=== PATIENT | male | born 1985 | race Caucasian/White ===

== ENCOUNTER 2018-02-10 13:39 | Emergency (ER) | payer OTHER, MEDICAID, SELFPAY ==
[2018-02-10 13:42] VITALS: BP 133/79; PULSE 73; RESP 14; TEMP 36.3; O2SAT 100; BMI 29.6
--- NOTE | 2018-02-10 14:31 | ED.FEVER ---
HPI - Fever <CAIT Shankar - Last Filed: 02/10/18 23:08> General Chief Complaint: Fever Stated Complaint: SPIDER BITE, FEELS SICK Time Seen by Provider: 02/10/18 14:31 Source: patient Mode of arrival: ambulatory Limitations: no limitations History of Present Illness HPI Narrative: 32-year-old male here for complaint of redness to his left knee. He states he noticed the symptoms yesterday. He also reports that he had some feelings of chills earlier today. He states he thought he might had a fever although he did not check his temperature. He reports that he has some discomfort to the anterior portion of his knee. 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 He thought maybe he was got bit by a spider although he denies any specific lesions. No trauma to the knee that he knows of. He denies any other concerns or complaints. He states he is able to bend the knee without any discomfort. He is able to ambulate in the emergency room without any discomfort. Related Data Home Medications Medication Instructions Recorded Confirmed gabapentin 300 mg PO TID 02/10/18 02/10/18 ketoconazole 1 applic/day TOPICAL DAILY 02/10/18 02/10/18 Previous Rx's Medication Instructions Recorded duloxetine 30 mg capsule,delayed 30 mg PO DAILY #30 cap 01/15/18 release clindamycin HCl 300 mg PO QID #28 cap 02/10/18 Allergies Allergy/AdvReac Type Severity Reaction Status Date / Time No Known Drug Allergies Allergy Verified 02/10/18 13:45 Review of Systems <CAIT Shankar - Last Filed: 02/10/18 23:08> Constitutional Denies chills, Denies fever(s), Denies lethargy and Denies weakness Eyes Denies change in vision, Denies eye discharge, Denies irritation and Denies loss of vision ENT Ears, Nose, Mouth, and Throat: Denies change in voice, Denies neck pain and Denies sore throat Cardiovascular Denies chest pain, Denies irregular heart rhythm, Denies lightheadedness, Denies palpitations, Denies dyspnea, Denies dyspnea on exertion and Denies orthopnea Respiratory Denies cough, Denies dyspnea, Denies dyspnea on exertion and Denies wheezing Gastrointestinal Gastrointestinal: Denies abdominal pain, Denies change in bowel habits, Denies diarrhea, Denies nausea and Denies vomiting Genitourinary Denies hematuria, Denies flank pain, Denies urinary incontinence and Denies urinary urgency Musculoskeletal Denies neck pain Comments: Left knee pain and erythema Integumentary/Breasts Denies pruritus, Denies erythema, Denies rash and Denies wounds Neurologic Denies confusion, Denies loss of vision and Denies weakness Psychiatric Denies anxiety, Denies confusion, Denies depression, Denies homicidal ideation and Denies suicidal ideation Endocrine Denies palpitations Hematologic/Lymphatic Denies easy bruising Allergic/Immunologic Denies wheezing Exam <CAIT Shankar - Last Filed: 02/10/18 23:08> Initial Vital Signs Initial Vital Signs: Vital Signs Temperature 97.4 F L 02/10/18 13:42 Pulse Rate 73 02/10/18 13:42 Respiratory Rate 14 02/10/18 13:42 Blood Pressure 133/79 H 02/10/18 13:42 Pulse Oximetry 100 02/10/18 13:42 Const General: cooperative and well developed Nutritional Appearance: well nourished Orientation: alert, awake, oriented x3 and not confused HENW[place] Mouth: oral mucosae normal and moist mucous membranes Eyes Conjunctivae: conjunctivae normal Sclera: sclerae normal Pupils: PERRL EOM: EOM intact bilaterally Resp Effort & Inspection: normal respiratory effort, able to speak in complete sentences, no respiratory distress and no use of accessory muscles Auscultation: clear to auscultation bilaterally, no rales, no rhonchi and no wheezes Cardio Rate: regular rate Rhythm: regular rhythm Heart Sounds: no click, no gallops, no murmurs and no rubs Pulses: normal peripheral pulses GI Inspection: non-distended Palpation: soft, no hepatosplenomegaly, No guarding, No pulsatile mass and No tender Auscultation: normal bowel sounds Skin General: no rashes or lesions noted, No jaundice and No petechiae Neuro General: alert, oriented x3, gait normal and no focal motor deficits Speech: speech normal Extrem Other: Slight erythema to anterior portion of the left knee. Slight swelling. Superficial abrasion to the anterior portion of the left knee. Full range of motion of left knee. Negative anterior posterior drawer sign. <Helder Javed MD - Last Filed: 02/12/18 08:52> Initial Vital Signs Initial Vital Signs: Vital Signs Temperature 97.4 F L 02/10/18 13:42 Pulse Rate 73 02/10/18 13:42 Respiratory Rate 14 02/10/18 13:42 Blood Pressure 133/79 H 02/10/18 13:42 Pulse Oximetry 100 02/10/18 13:42 Course <CAIT Shankar - Last Filed: 02/10/18 23:08> Orders Ordered: ED Orders 02/10/18 15:19 XR knee LT 3V Stat Vital Signs - 8 hr 02/10/18 16:30 Pulse Rate 68 Respiratory Rate 15 Blood Pressure [Right Arm] 132/80 H Pulse Oximetry 100 <Helder Javed MD - Last Filed: 02/12/18 08:52> Orders Ordered: ED Orders 02/10/18 15:19 XR knee LT 3V Stat Vital Signs - 8 hr 02/10/18 16:30 Pulse Rate 68 Respiratory Rate 15 Blood Pressure [Right Arm] 132/80 H Pulse Oximetry 100 MDM - Fever <CAIT Shankar - Last Filed: 02/10/18 23:08> Imaging Data knee: Radiologist's impression: Patient: Joe Wu MR#: [id number] : 1985 Acct:[id number] Age/Sex: 32 / M Date of Service: 02/10/18 Loc: Accession Number: [id number] Procedure: XR knee LT 3V Ordering Provider: Jacinto García PROCEDURE: XR KNEE LT 3V INDICATIONS: Pain to anterior left knee TECHNIQUE: 3 views of the knee were acquired. COMPARISON: None. FINDINGS: Bones: No fractures or dislocations. No suspicious bony lesions. Soft tissues: No joint effusion. No suspicious soft tissue calcifications. IMPRESSION: No fracture or dislocation. Dictated by: Cornelia Diaz M.D. on 02/10/2018 at 15:40 Approved by: Cornelia Diaz M.D. on 02/10/2018 at 15:41 MDM Narrative Medical decision making narrative: X-ray the left knee was obtained was negative for any acute findings. Due to a mild abrasion seen into anterior portion of the left knee and increased temperature to the area will treat for cellulitis. Differential of prepatellar bursitis. [id number] ibuprofen as needed for any discomfort. Follow up with primary care provider in the next few days. Clindamycin as prescribed. Patient states that he gets frequent urinary tract infections so Urinalysis was obtained and was negative for urinary tract infection. For any worsening symptoms return to the emergency room. Discharge Plan Departure Patient Disposition: Home, Self-Care Clinical Impression: Cellulitis Discharge Date/Time: 02/10/18 16:36 Interventions: ED Discharge Assessment Last Done: 02/10/18 16:35 Instructions: DI for Cellulitis -- Adult Activity Restrictions/Additional Instructions: Sinus symptoms presents as cellulitis to the anterior left knee. You are placed on antibiotic use as directed. Differential diagnosis of prepatellar bursitis due to being on knees yesterday use [id number] ibuprofen for anti-inflammatory effects and discomfort. Follow up with primary care provider in the next few days for re-evaluation. X-ray of the left knee was negative for any acute findings. For any worsening symptoms return to the emergency room. Urinalysis was negative for urinary tract infection. Prescriptions: New clindamycin HCl 300 mg capsule 300 mg PO QID Qty: 28 RF: 0 No Action duloxetine [Cymbalta] 30 mg capsule,delayed release(DR/EC) 30 mg PO DAILY Qty: 30 RF: 3 gabapentin 300 mg capsule 300 mg PO TID RF: 0 ketoconazole 2 % cream 1 applic/day Topical DAILY RF: 0 Referrals: Apolinar Medina MD [Primary Care Provider] - <Helder Javed MD - Last Filed: 02/12/18 08:52> Sign Out Provider Sign Out Attestation: The PA/CORRESPONDENCE RENEW CLERK functioned independently for the care of this pt, I was available, but not asked to participate in care. I am unable to determine appropriateness of management without personally examining the pt.
--- NOTE | 2018-02-10 14:35 | ED_ITS ---
HPI - Fever <CAIT Shankar - Last Filed: 02/10/18 23:08> General Chief Complaint: Fever Stated Complaint: SPIDER BITE, FEELS SICK Time Seen by Provider: 02/10/18 14:31 Source: patient Mode of arrival: ambulatory Limitations: no limitations History of Present Illness HPI Narrative: 32-year-old male here for complaint of redness to his left knee. He states he noticed the symptoms yesterday. He also reports that he had some feelings of chills earlier today. He states he thought he might had a fever although he did not check his temperature. He reports that he has some discomfort to the anterior portion of his knee. 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 He thought maybe he was got bit by a spider although he denies any specific lesions. No trauma to the knee that he knows of. He denies any other concerns or complaints. He states he is able to bend the knee without any discomfort. He is able to ambulate in the emergency room without any discomfort. Related Data Home Medications Medication Instructions Recorded Confirmed gabapentin 300 mg PO TID 02/10/18 02/10/18 ketoconazole 1 applic/day TOPICAL DAILY 02/10/18 02/10/18 Previous Rx's Medication Instructions Recorded duloxetine 30 mg capsule,delayed 30 mg PO DAILY #30 cap 01/15/18 release clindamycin HCl 300 mg PO QID #28 cap 02/10/18 Allergies Allergy/AdvReac Type Severity Reaction Status Date / Time No Known Drug Allergies Allergy Verified 02/10/18 13:45 Review of Systems <CAIT Shankar - Last Filed: 02/10/18 23:08> Constitutional Denies chills, Denies fever(s), Denies lethargy and Denies weakness Eyes Denies change in vision, Denies eye discharge, Denies irritation and Denies loss of vision ENT Ears, Nose, Mouth, and Throat: Denies change in voice, Denies neck pain and Denies sore throat Cardiovascular Denies chest pain, Denies irregular heart rhythm, Denies lightheadedness, Denies palpitations, Denies dyspnea, Denies dyspnea on exertion and Denies orthopnea Respiratory Denies cough, Denies dyspnea, Denies dyspnea on exertion and Denies wheezing Gastrointestinal Gastrointestinal: Denies abdominal pain, Denies change in bowel habits, Denies diarrhea, Denies nausea and Denies vomiting Genitourinary Denies hematuria, Denies flank pain, Denies urinary incontinence and Denies urinary urgency Musculoskeletal Denies neck pain Comments: Left knee pain and erythema Integumentary/Breasts Denies pruritus, Denies erythema, Denies rash and Denies wounds Neurologic Denies confusion, Denies loss of vision and Denies weakness Psychiatric Denies anxiety, Denies confusion, Denies depression, Denies homicidal ideation and Denies suicidal ideation Endocrine Denies palpitations Hematologic/Lymphatic Denies easy bruising Allergic/Immunologic Denies wheezing Exam <CAIT Shankar - Last Filed: 02/10/18 23:08> Initial Vital Signs Initial Vital Signs: Vital Signs Temperature 97.4 F L 02/10/18 13:42 Pulse Rate 73 02/10/18 13:42 Respiratory Rate 14 02/10/18 13:42 Blood Pressure 133/79 H 02/10/18 13:42 Pulse Oximetry 100 02/10/18 13:42 Const General: cooperative and well developed Nutritional Appearance: well nourished Orientation: alert, awake, oriented x3 and not confused HENOR Mouth: oral mucosae normal and moist mucous membranes Eyes Conjunctivae: conjunctivae normal Sclera: sclerae normal Pupils: PERRL EOM: EOM intact bilaterally Resp Effort & Inspection: normal respiratory effort, able to speak in complete sentences, no respiratory distress and no use of accessory muscles Auscultation: clear to auscultation bilaterally, no rales, no rhonchi and no wheezes Cardio Rate: regular rate Rhythm: regular rhythm Heart Sounds: no click, no gallops, no murmurs and no rubs Pulses: normal peripheral pulses GI Inspection: non-distended Palpation: soft, no hepatosplenomegaly, No guarding, No pulsatile mass and No tender Auscultation: normal bowel sounds Skin General: no rashes or lesions noted, No jaundice and No petechiae Neuro General: alert, oriented x3, gait normal and no focal motor deficits Speech: speech normal Extrem Other: Slight erythema to anterior portion of the left knee. Slight swelling. Superficial abrasion to the anterior portion of the left knee. Full range of motion of left knee. Negative anterior posterior drawer sign. <Helder Javed MD - Last Filed: 02/12/18 08:52> Initial Vital Signs Initial Vital Signs: Vital Signs Temperature 97.4 F L 02/10/18 13:42 Pulse Rate 73 02/10/18 13:42 Respiratory Rate 14 02/10/18 13:42 Blood Pressure 133/79 H 02/10/18 13:42 Pulse Oximetry 100 02/10/18 13:42 Course <CAIT Shankar - Last Filed: 02/10/18 23:08> Orders Ordered: ED Orders 02/10/18 15:19 XR knee LT 3V Stat Vital Signs - 8 hr 02/10/18 16:30 Pulse Rate 68 Respiratory Rate 15 Blood Pressure [Right Arm] 132/80 H Pulse Oximetry 100 <Helder Javed MD - Last Filed: 02/12/18 08:52> Orders Ordered: ED Orders 02/10/18 15:19 XR knee LT 3V Stat Vital Signs - 8 hr 02/10/18 16:30 Pulse Rate 68 Respiratory Rate 15 Blood Pressure [Right Arm] 132/80 H Pulse Oximetry 100 MDM - Fever <CAIT Shankar - Last Filed: 02/10/18 23:08> Imaging Data knee: Radiologist's impression: Patient: Joe Wu MR#: [id number] : 1985 Acct:[id number] Age/Sex: 32 / M Date of Service: 02/10/18 Loc: Accession Number: [id number] Procedure: XR knee LT 3V Ordering Provider: Jacinto García PROCEDURE: XR KNEE LT 3V INDICATIONS: Pain to anterior left knee TECHNIQUE: 3 views of the knee were acquired. COMPARISON: None. FINDINGS: Bones: No fractures or dislocations. No suspicious bony lesions. Soft tissues: No joint effusion. No suspicious soft tissue calcifications. IMPRESSION: No fracture or dislocation. Dictated by: Cornelia Diaz M.D. on 02/10/2018 at 15:40 Approved by: Cornelia Diaz M.D. on 02/10/2018 at 15:41 MDM Narrative Medical decision making narrative: X-ray the left knee was obtained was negative for any acute findings. Due to a mild abrasion seen into anterior portion of the left knee and increased temperature to the area will treat for cellulitis. Differential of prepatellar bursitis. [id number] ibuprofen as needed for any discomfort. Follow up with primary care provider in the next few days. Clindamycin as prescribed. Patient states that he gets frequent urinary tract infections so Urinalysis was obtained and was negative for urinary tract infection. For any worsening symptoms return to the emergency room. Discharge Plan Departure Patient Disposition: Home, Self-Care Clinical Impression: Cellulitis Discharge Date/Time: 02/10/18 16:36 Interventions: ED Discharge Assessment Last Done: 02/10/18 16:35 Instructions: DI for Cellulitis -- Adult Activity Restrictions/Additional Instructions: Sinus symptoms presents as cellulitis to the anterior left knee. You are placed on antibiotic use as directed. Differential diagnosis of prepatellar bursitis due to being on knees yesterday use [id number] ibuprofen for anti -inflammatory effects and discomfort. Follow up with primary care provider in the next few days for re-evaluation. X-ray of the left knee was negative for any acute findings. For any worsening symptoms return to the emergency room. Urinalysis was negative for urinary tract infection. Prescriptions: New clindamycin HCl 300 mg capsule 300 mg PO QID Qty: 28 RF: 0 No Action duloxetine [Cymbalta] 30 mg capsule,delayed release(DR/EC) 30 mg PO DAILY Qty: 30 RF: 3 gabapentin 300 mg capsule 300 mg PO TID RF: 0 ketoconazole 2 % cream 1 applic/day Topical DAILY RF: 0 Referrals: Apolinar Medina MD [Primary Care Provider] - <Helder Javed MD - Last Filed: 02/12/18 08:52> Sign Out Provider Sign Out Attestation: The PA/ELECTRIC LOCOMOTIVE CRANE OPERATOR functioned independently for the care of this pt, I was available, but not asked to participate in care. I am unable to determine appropriateness of management without personally examining the pt.
--- NOTE | 2018-02-10 14:53 | PC.NURSE ---
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 L knee is red and painful
--- NOTE | 2018-02-10 15:19 | DI.RAD.S_ITS ---
PROCEDURE: XR KNEE LT 3V INDICATIONS: Pain to anterior left knee TECHNIQUE: 3 views of the knee were acquired. COMPARISON: None. FINDINGS: Bones: No fractures or dislocations. No suspicious bony lesions. Soft tissues: No joint effusion. No suspicious soft tissue calcifications. IMPRESSION: No fracture or dislocation. Dictated by: Cornelia Diaz M.D. on 02/10/2018 at 15:40 Approved by: Cornelia Diaz M.D. on 02/10/2018 at 15:41
--- NOTE | 2018-02-10 16:25 | PC.NURSE ---
Pt given cath kit as does self catheters due to MS
[2018-02-10 16:30] VITALS: BP 132/80; PULSE 68; RESP 15; O2SAT 100
== END 2018-02-10 16:36 | disposition home or self-care (01) ==
PROVIDERS: Emergency Provider Nurse Practitioner Family; PCP Family Medicine
DX: L03.116 Cellulitis of left lower limb (principal)
CPT/HCPCS: 73562; 81003; 99283

== ENCOUNTER → 2018-03-15 17:11 | Outpatient (CLI) | payer OTHER, MEDICAID, SELFPAY ==
--- NOTE | 2018-03-15 | DI.MRI.S_ITS ---
PROCEDURE: MR CERVICAL SPINE WO/W CON INDICATIONS: MS WORKUP TECHNIQUE: Noncontrast sagittal T1 spin echo and T2 fast spin echo, sagittal STIR, sagittal PD fast spin echo, foraminal oblique sagittal T2 fast spin echo, axial gradient echo or T2 fast spin echo through the cervical spine. After the administration of contrast, sagittal and axial T1 spin echo with fat saturation through the cervical spine. COMPARISON: [facility], MR, T-SPINE W&WO CONTRAST, 10/13/2015, 18:46. [facility], MR, C-SPINE W&WO CONTRAST, 06/28/2017, 19:05. [facility], MR, C-SPINE W&WO CONTRAST, 10/13/2015, 18:26. [facility], MR, C-SPINE W&WO CONTRAST, 03/26/2015, 10:34. FINDINGS: Image quality: Excellent. Alignment and curvature: There is normal bony alignment. Marrow: Marrow demonstrates normal overall signal. Spinal cord: Foci of increased T2 signal involving the cervical spinal cord at the level of the C2, C3, C4, C5 and C6 vertebral bodies are stable in size contour and number compared to 06/28/17. No new signal abnormalities identified in the cervical spinal cord or the upper thoracic spinal cord. No suspicious intramedullary enhancement. No cerebellar tonsillar herniation. Paraspinous soft tissues: No paravertebral masses or suspicious enhancement. C2-C3: Normal appearance. C3-C4: Normal appearance. C4-C5: Loss of disc signal and slight loss of disc height. Mild, diffuse disc bulge. No central stenosis. Mild bilateral facet hypertrophy. Mild bilateral neural foraminal narrowing. No neural impingement. C5-C6: Loss of disc signal and mild loss of disc height. Moderate, diffuse disc bulge. Mild to moderate narrowing of the central canal. Mild bilateral facet hypertrophy. Mild bilateral neural foraminal narrowing. No neural impingement. C6-C7: Loss of disc signal and slight loss of disc height. Mild, diffuse disc bulge. Mild narrowing of the central canal. Mild bilateral facet hypertrophy. Mild bilateral neural foraminal narrowing. No neural impingement. C7-T1: Normal appearance. IMPRESSION: 1. Numerous foci of increased T2 signal in the cervical spinal cord compatible with reported history of multiple sclerosis. Multiple sclerosis plaques are unchanged in size, number and contour compared to 06/28/2017. 2. No abnormal postcontrast enhancement. 3. Multilevel degenerative disc disease. 4. Multilevel facet arthropathy. 5. Mild to moderate C5-C6 central canal narrowing. Mild C6-C7 central canal narrowing. 6. Mild bilateral C4-C5, C5-C6 and C6-C7 neural foraminal narrowing. Dictated by: Cleo Gonzalez MD, PhD on 03/16/2018 at 14:07 Approved by: Cleo Gonzalez MD, PhD on 03/16/2018 at 14:16
--- NOTE | 2018-03-15 17:13 | DI.MRI.S_ITS ---
PROCEDURE: MR HEAD/BRAIN WO/W CON INDICATIONS: RELAPSING MULTIPLE SCLEROSIS TECHNIQUE: Noncontrast sagittal and axial FLAIR, axial and coronal T2 fast spin echo, axial VIBE, axial gradient echo, axial diffusion and ADC through the brain. After the administration of contrast, axial and coronal VIBE with fat saturation through the brain. COMPARISON: [facility], MR, BRAIN W&WO CONTRAST, 06/28/2017, 18:46. [facility], MR, BRAIN W&WO CONTRAST, 10/13/2015, 18:03. [facility], MR, BRAIN W&WO CONTRAST, 03/26/2015, 10:06. FINDINGS: Image quality: Excellent. CSF spaces: Ventricles are normal in size and shape. Basal cisterns are patent. No extra-axial fluid collections. Brain: No intracranial bleeds or mass effects. Rodriguez-white matter interface appears intact. Foci of increased T2 signal in the periventricular white matter are stable in number compared to 06/28/2017. Lesion involving the left parietal periventricular white matter (series 4, image 12) has increased in size compared to 06/28/17. No abnormal intracranial enhancement. Diffusion weighted images show no acute ischemic insults. Brainstem appears normal. Normal intravascular flow voids are present. Skull and face: Calvarial marrow signal is normal. Orbits appear normal. Sinuses: Sinuses and mastoids are clear. IMPRESSION: 1. Multiple foci of increased T2 signal in the periventricular white matter tracts with imaging characteristics compatible clinically reported multiple sclerosis. Multiple sclerosis plaques are stable in number compared to 07/05 2017 with no new plaques identified. Left parietal periventricular white matter plaque has increased slightly in size compared to 06/28/17. 2. No abnormal postcontrast enhancement. Dictated by: Cleo Gonzalez MD, PhD on 03/16/2018 at 7:33 Approved by: Cleo Gonzalez MD, PhD on 03/16/2018 at 17:24
== END ==
PROVIDERS: PCP Family Medicine; Visit Provider Psychiatry & Neurology Neurology
DX: G35 Multiple sclerosis (principal); M50.321 Other cervical disc degeneration at C4-C5 level; M47.812 Spondylosis without myelopathy or radiculopathy, cervical region; M48.02 Spinal stenosis, cervical region
CPT/HCPCS: 70553; 72156; A9579

== ENCOUNTER → 2019-10-22 15:31 | Outpatient (CLI) | payer OTHER, SELFPAY ==
[2019-10-22 15:38] LABS: Bacteria Urine None Seen; RBC Urine None Seen (0-5/HPF); WBC Urine None Seen (0-5/HPF)
[2019-10-22 16:09] LABS: Appearance Urine UA CLEAR; Bilirubin Urine UA NEGATIVE (NEGATIVE); Color Urine UA YELLOW; Glucose Urine UA NEGATIVE (Negative); Ketones Urine UA NEGATIVE (NEGATIVE); Leukocyte Esterase Urine UA NEGATIVE (NEGATIVE); Nitrite Urine UA NEGATIVE (Negative); Occult Blood Urine UA NEGATIVE (Negative); Protein Urine UA NEGATIVE (Negative); Specific Gravity Urine UA >=1.030 (1.000-1.035); Urobilinogen Urine UA 0.2 E.U./dL (0.2)
[2019-10-22 16:20] LABS: Culture Indicated Urine Cult Not Indicated; Urine Comments Microscopic Normal
== END ==
PROVIDERS: PCP Family Medicine; Referring Provider Urology; Visit Provider Urology
DX: R35.0 Frequency of micturition (principal); R31.0 Gross hematuria
CPT/HCPCS: 81001

== ENCOUNTER → 2020-01-22 12:16 | Outpatient (CLI) | payer OTHER, SELFPAY ==
--- NOTE | 2020-01-22 12:17 | DI.RAD.S_ITS ---
PROCEDURE: XR ANKLE RT MIN 3V INDICATIONS: ankle sprain TECHNIQUE: 3 views of the ankle were acquired. COMPARISON: None. FINDINGS: Bones: No fractures or dislocations. Ankle mortise is normally aligned. No suspicious bony lesions. Soft tissues: No tibiotalar joint effusion. Achilles tendon appears normal. IMPRESSION: No evidence acute bony abnormality of the right ankle. If clinical suspicion and/or symptoms persist, further assessment with repeat plain films, or advanced imaging (e.g., CT, MRI, or bone scan) may be helpful for further assessment. Dictated by: Edgar Serra M.D. on 01/22/2020 at 13:10 Approved by: Edgar Serra M.D. on 01/22/2020 at 13:11
== END ==
PROVIDERS: PCP Family Medicine; Referring Provider Family Medicine; Visit Provider Family Medicine
DX: M25.571 Pain in right ankle and joints of right foot (principal); S93.401A Sprain of unspecified ligament of right ankle, initial encounter; X58.XXXA Exposure to other specified factors, initial encounter
CPT/HCPCS: 73610

== ENCOUNTER → 2020-01-31 07:33 | Outpatient (CLI) | payer OTHER, SELFPAY ==
--- NOTE | 2020-01-31 | DI.MRI.S_ITS ---
PROCEDURE: MR THORACIC SPINE WO/W CON INDICATIONS: Multiple sclerosis TECHNIQUE: Noncontrast sagittal T1 spin echo and T2 fast spin echo, sagittal STIR, axial T1 and T2 fast spin echo through the thoracic spine. After the administration of contrast, axial and sagittal T1 spin echo with fat saturation through the thoracic spine. COMPARISON: [facility], MR, T-SPINE W&WO CONTRAST, 10/13/2015, 18:46. [facility], MR, T-SPINE W&WO CONTRAST, 06/26/2015, 17:08. FINDINGS: Image quality: Excellent. Alignment and curvature: There is normal bony alignment. Marrow: Marrow is of normal overall signal. No acute vertebral body compression fractures. Spinal cord: Visualized spinal cord is of normal size, without abnormal enhancement, but again noted is mild patchy heterogeneity of the cord signal on sagittal STIR and axial T2 imaging. This is equivalent to that previously present, and is not associated with contrast enhancement or mass effect. The findings are consistent with the clinical history of underlying multiple sclerosis, stable over time. Paraspinous soft tissues: No paravertebral masses or abnormal enhancement. Miscellaneous: Central canal and foramina appear widely patent at all scanned levels. IMPRESSION: Mild heterogeneity of the cord signal with patchy areas of elevated fluid signal seen on sagittal STIR imaging and axial T2 imaging through the thoracic spine. No contrast enhancing lesion is found. The findings are consistent with stable underlying multiple sclerosis. A similar pattern was also seen within the cervical spine on MR scanning also performed today through that area. Dictated by: Harman Reid M.D. on 01/31/2020 at 11:38 Approved by: Harman Reid M.D. on 01/31/2020 at 11:44
--- NOTE | 2020-01-31 | DI.MRI.S_ITS ---
PROCEDURE: MR CERVICAL SPINE WO/W CON INDICATIONS: Multiple sclerosis TECHNIQUE: Noncontrast sagittal T1 spin echo and T2 fast spin echo, sagittal STIR, sagittal PD fast spin echo, foraminal oblique sagittal T2 fast spin echo, axial gradient echo or T2 fast spin echo through the cervical spine. After the administration of contrast, sagittal and axial T1 spin echo with fat saturation through the cervical spine. COMPARISON: [facility], MR, MR CERVICAL SPINE WO/W CON, 03/15/2018, 17:43. [facility], MR, C-SPINE W&WO CONTRAST, 06/28/2017, 19:05. FINDINGS: Image quality: Excellent. Alignment and curvature: There is normal bony alignment. Marrow: Marrow demonstrates normal overall signal. Spinal cord: Visualized spinal cord is normal in size, but with stable appearing scattered foci of white matter lesions as has been previously the case, nonenhancing. These are best seen on sagittal proton density scanning, and not associated with mass effect.. No suspicious intramedullary enhancement. No cerebellar tonsillar herniation. Paraspinous soft tissues: No paravertebral masses or suspicious enhancement. C2-C3: Normal appearance. C3-C4: Normal appearance. C4-C5: Normal appearance except for slight disc height reduction and disc desiccation without significant spinal or foraminal stenosis. C5-C6: Worsening degenerative disc disease comprised of disc height reduction, disc desiccation, and increased posterior disc bulging with a contiguous enlargement of the posterior disc bulge greater on the right than the left, resulting in right greater than left spinal stenosis from the right posterolateral protrusion component of this disc bulging best seen on series 6, image 30 axial view. The facet osteoarthritis at this level is moderate, contributing to foraminal stenosis bilaterally slightly greater on the left than the right.. C6-C7: Normal appearance except for slight disc height reduction and desiccation. C7-T1: Normal appearance. IMPRESSION: 1. Stable appearance of multiple foci of mild elevated T2 signal consistent with the history of underlying multiple sclerosis. No mass effect, no contrast enhancement is associated. 2. Mild interval worsening of degenerative disc disease at the C5-6 level, comprised of worsening posterior disc bulging with a contiguous disc protrusion at the right posterolateral recess which was not previously present. This results in asymmetric right greater than left spinal stenosis. Pre-existing foraminal stenosis related to facet osteoarthritis, left slightly greater than right, is again seen. New right-sided C6 nerve root impingement symptoms may be present. Dictated by: Harman Reid M.D. on 01/31/2020 at 11:32 Approved by: Harman Reid M.D. on 01/31/2020 at 11:37
--- NOTE | 2020-01-31 | DI.MRI.S_ITS ---
PROCEDURE: MR HEAD/BRAIN WO/W CON INDICATIONS: Multiple sclerosis TECHNIQUE: Noncontrast sagittal and axial FLAIR, axial and coronal T2 fast spin echo, axial VIBE, axial gradient echo, axial diffusion and ADC through the brain. After the administration of contrast, axial and coronal VIBE with fat saturation through the brain. COMPARISON: [facility], MR, BRAIN W&WO CONTRAST, 03/26/2015, 10:06. [facility], MR, MR HEAD/BRAIN WO/W CON, 03/15/2018, 17:28. [facility], MR, BRAIN W&WO CONTRAST, 06/28/2017, 18:46. FINDINGS: Image quality: Excellent. CSF spaces: Ventricles are normal in size and shape. Basal cisterns are patent. No extra-axial fluid collections. Brain: No intracranial bleeds or mass effects. Rodriguez-white matter interface appears intact. No no suspicious white matter lesions or enhancing white matter lesions that would indicate presence of interval active disease between the comparison studies. The overall abnormal findings are mild in severity, comprised predominantly of mild elevated FLAIR signal within and centripetally oriented immediately adjacent to the corpus callosum bilaterally slightly greater on the right than the left. No abnormal intracranial enhancement. Diffusion weighted images show no acute ischemic insults. Brainstem appears normal. Normal intravascular flow voids are present. Skull and face: Calvarial marrow signal is normal. Orbits appear normal. Sinuses: Sinuses and mastoids are clear. IMPRESSION: Stable appearing mild elevated FLAIR signal seen within and immediately adjacent to the corpus callosum right slightly greater than left, without mass effect or abnormal enhancement associated. The centripetal orientation of these small lesions also is stable over time and no new abnormality has developed. The findings are consistent with stable underlying multiple sclerosis. Dictated by: Harman Reid M.D. on 01/31/2020 at 12:31 Approved by: Harman Reid M.D. on 01/31/2020 at 12:37
== END ==
PROVIDERS: PCP Family Medicine; Referring Provider Psychiatry & Neurology Neurology; Visit Provider Psychiatry & Neurology Neurology
DX: G35 Multiple sclerosis (principal); M50.322 Other cervical disc degeneration at C5-C6 level; M48.02 Spinal stenosis, cervical region; M47.812 Spondylosis without myelopathy or radiculopathy, cervical region
CPT/HCPCS: 70553; 72156; 72157; A9579

== ENCOUNTER → 2020-07-30 14:47 | Outpatient (CLI) | payer OTHER, SELFPAY ==
--- NOTE | 2020-07-30 14:48 | DI.RAD.S_ITS ---
PROCEDURE: XR FINGER LT MIN 2V INDICATIONS: Left finger injury, 4th digit TECHNIQUE: AP hand, 2 views of the 4th finger(s) acquired. COMPARISON: [facility], , FINGER LT, 01/24/2017, 9:18. FINDINGS: Bones: There is an avulsion fracture of the proximal aspect of the distal phalanx extensor side. No other fracture or dislocation. Soft tissues: No suspicious soft tissue calcifications. IMPRESSION: Avulsion fracture at the insertion of the extensor tendon to the distal phalanx of the ring finger. Dictated by: Sudhakar Young M.D. on 07/30/2020 at 17:14 Approved by: Sudhakar Young M.D. on 07/30/2020 at 17:16
== END ==
PROVIDERS: PCP Family Medicine; Referring Provider Family Medicine; Visit Provider Family Medicine
DX: S62.635A Displaced fracture of distal phalanx of left ring finger, initial encounter for closed fracture (principal)
CPT/HCPCS: 73140

== ENCOUNTER → 2020-08-26 11:43 | Outpatient (CLI) | payer OTHER, SELFPAY ==
[2020-08-26 13:42] LABS: COVID19 -Nasal RAPID Negative (Negative)
== END ==
PROVIDERS: PCP Family Medicine; Visit Provider Physician Assistant
DX: Z20.822 Contact with and (suspected) exposure to COVID-19 (principal)
CPT/HCPCS: 87635

== ENCOUNTER 2020-08-27 08:19 | Day surgery (SDC) | payer OTHER, SELFPAY ==
[2020-08-27] VITALS (11 sets, daily range): BP systolic 116–128; BP diastolic 61–78; PULSE 64–80; RESP 10–20; TEMP 36.1–37.1; O2SAT 95–99; BMI 32.5
[2020-08-27] MEDS: LACTATED RINGERS 1,000 ML 42 ML IV ×2 (08:53→10:38)
--- NOTE | 2020-08-27 09:37 | PM.PREOP ---
Pre-operative Note COVID-19 COVID-19 status: Negative Result date/Date tested (Pos, Neg/Pending): 08/25/20 Interval Note History & Physical reviewed/Exam performed by Physician: Yes Changes to H&P: No
[2020-08-27] MEDS: CEFAZOLIN 2 GM/100 ML FROZ.PIGGY IV (09:54)
--- NOTE | 2020-08-27 09:56 | SUR.OPER ---
Supine on padded OR bed, head on pillow, nonoperative arm secured on padded arm board at <90 degrees abduction, operative arm on hand table, legs uncrossed, safety belt at thigh, tape over blanket over lower legs.
[2020-08-27] MEDS: BUPIVACAINE 0.5% W/ EPI (PF) 30 ML VIAL INJ (10:24)
--- NOTE | 2020-08-27 11:22 | P.OP_ITS ---
Operative Date/Time/Diagnoses Date of procedure: 08/27/20 Time of procedure: 10:00 Pre-op diagnosis: Left ring finger distal phalanx fracture with bony mallet and subluxation of the DIP joint Post-op diagnosis: same Procedure & Clinicians Procedure: Open reduction and fixation of the distal phalanx fracture with reduction of the D IP joint and pinning of the D IP joint Same procedure as scheduled: Yes Indications: Left ring finger bony mallet with subluxation of the distal phalanx Surgeon: Nathaniel Lutz Click Yes if Unassisted: Yes Anesthesia Type: General Operative Notes Findings: Bony mallet involving the left ring finger. The bony fragment involved about 50% of the joint surface and there was subluxation of the distal phalanx Closure Type: primary Specimen(s): none sent Applied: implant(s) (Three K-wires) Estimated Blood Loss (mL): 1 Blood products transfused: none Tourniquet time (min): 44 Procedure in detail: On date of service, patient was met in the holding area where his operative site was signed and witnessed by the OR staff. The surgeries once again discussed with the patient in remaining questions or concerns he had were answered fully. Patient was taken back to the operating theater placed on the operating table in a supine position. Great care was taken to ensure that all bony prominences were appropriately padded. Well- padded tourniquet was placed up along the upper extremity. Time-out was performed verifying patient's name, procedure, and operative site. The upper extremity was prepped and draped in the normal sterile fashion. Esmarch was used to exsanguinate the limb the tourniquet was turned up to 250 mm of mercury. Using mini C-arm and attempted a percutaneous fixation was performed. K-wire was placed in the middle phalanx to do an extension block. But with extending of the distal phalanx there was still an adequate reduction of the bony fragment. Due to this fact, we decided at this point to convert to an open reduction. A 15 blade was used to make an incision down the midline of the finger centered over the D IP joint. Sharp dissection was continued until the distal phalanx and extensor tendon was visualized. Small opening was made in the extensor tendons to get better visualization of the bony fragment. Using a [place] elevator and a 2 point reduction forceps the bony fragment was reduced and held with a K-wire. C-arm was brought in to verify good overall reduction of the bony fragment. Second K-wire was placed back into the middle phalanx to provide a dorsal block to the bony fragment. Next, the subluxation of the dista l phalanx was corrected and a 3rd K-wire was placed at this time across the D IP joint holding the D IP joint in full extension as well as correcting the volar subluxation. Final x-rays were obtained. The wound was copiously irrigated. A small split in the Extensor was repaired with 4-0 Ethibond and the skin was closed with 5 0 nylon. The finger was then cleaned, dried, and dressed and patient was placed into a splint. The finger was digitally blocked patient was taken to the PACU in stable condition. Complications: none Post-operative Condition: stable Disposition: PACU Plan for aftercare: Patient's D IP joint will be immobilized for 6 weeks. Patient will need a splint protecting the D IP joint. No restrictions to range of motion of the PIP and MCP joint.
[2020-08-27] MEDS: fentaNYL 100 MCG/2 ML INJ IV ×2 (11:45→11:55)
[2020-08-27] MEDS: HYDROCODONE/ACET 5/325 TABLET 1 TAB PO (12:08)
== END 2020-08-27 12:51 | disposition home or self-care (01) ==
PROVIDERS: PCP Family Medicine; Referring Provider Family Medicine; Visit Provider Orthopaedic Surgery
PROC: (CPT 26765; principal; 2020-08-27 10:00)
DX: S62.635A Displaced fracture of distal phalanx of left ring finger, initial encounter for closed fracture (principal); W23.0XXA Caught, crushed, jammed, or pinched between moving objects, initial encounter; Y93.23 Activity, snow (alpine) (downhill) skiing, snowboarding, sledding, tobogganing and snow tubing; G35 Multiple sclerosis
CPT/HCPCS: 26765; J0690; J1100; J2405; J2704; J3010

== ENCOUNTER → 2020-09-08 08:12 | Outpatient (CLI) | payer OTHER, SELFPAY ==
--- NOTE | 2020-09-08 08:13 | DI.US.S_ITS ---
PROCEDURE: US ABDOMEN LIMITED INDICATIONS: LEFT GROIN TENDER LUMP TECHNIQUE: Real-time focused scanning was performed of the abdomen, with image documentation. COMPARISON: None. FINDINGS: No abnormality found in area of current clinical concern at the left groin area. IMPRESSION: Source of current tenderness left groin is not seen. Follow-up by CT scanning may be warranted. Dictated by: Harman Reid M.D. on 09/08/2020 at 9:41 Approved by: Harman Reid M.D. on 09/08/2020 at 9:41
== END ==
PROVIDERS: PCP Family Medicine; Referring Provider Nurse Practitioner Family; Visit Provider Nurse Practitioner Family
DX: R10.32 Left lower quadrant pain (principal); G89.29 Other chronic pain
CPT/HCPCS: 76705

== ENCOUNTER → 2021-06-29 15:48 | Outpatient (CLI) | payer OTHER, SELFPAY ==
--- NOTE | 2021-06-29 15:53 | DI.RAD.S_ITS ---
PROCEDURE: XR FINGER LT MIN 2V INDICATIONS: Recurrent cyst at PIP since surgery TECHNIQUE: AP hand, 2 views of the 4th finger(s) acquired. COMPARISON: [facility], CR, XR FINGER(S) LEFT, 08/18/2020, 15:27. [facility], CR, XR FINGER(S) LEFT, 08/05/2020, 16:06. [facility], CR, XR FINGER(S) LEFT, 08/05/2020, 15:29. [facility], CR, XR FINGER LT MIN 2V, 07/30/2020, 14:53. FINDINGS: Bones: No acute fractures or dislocations. No suspicious bony lesions. Old fracture/deformity at the base of the 4th distal phalanx and severe secondary osteoarthritic changes at the distal interphalangeal joint. Soft tissues: No suspicious soft tissue calcifications. 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 Dictated by: Cornelai Diaz M.D. on 06/29/2021 at 18:05 Approved by: Cornelia Diaz M.D. on 06/30/2021 at 15:54
== END ==
PROVIDERS: PCP Family Medicine; Referring Provider Physician Assistant; Visit Provider Physician Assistant
DX: M19.042 Primary osteoarthritis, left hand (principal)
CPT/HCPCS: 73140

== ENCOUNTER 2021-07-19 19:34 | Emergency (ER) | payer OTHER, SELFPAY ==
[2021-07-19 19:36] VITALS: BP 149/80; PULSE 57; RESP 22; TEMP 36.9; O2SAT 100
--- NOTE | 2021-07-19 19:54 | DI.RAD.S_ITS ---
PROCEDURE: XR CHEST 1V INDICATIONS: chest pain TECHNIQUE: One view of the chest was acquired. COMPARISON: None. FINDINGS: Surgical changes and devices: None. Lungs and pleura: Lungs are clear. No pleural effusions or pneumothorax. Mediastinum: Mediastinal contours appear normal. Heart size is normal. Bones and chest wall: No suspicious bony lesions. Overlying soft tissues appear unremarkable. IMPRESSION: No acute cardiopulmonary abnormalities or focal airspace disease. Dictated by: Lee Smiley M.D. on 07/19/2021 at 20:27 Approved by: Lee Smiley M.D. on 07/19/2021 at 20:28
[2021-07-19 20:02] LABS: Add Manual Diff / Slide Review NO; Basophils Absolute Auto 0 /uL (0-100); Basophils Percent Auto 0.7 % (0-2); Eosinophils Absolute Auto 400 /uL (0-450); Eosinophils Percent Auto 6.8 % (2-4); Hematocrit 42.7 % (41-53); Hemoglobin 14.7 g/dL (13.5-17.5); Lymphocytes Absolute Auto 1300 /uL (1100-4500); Lymphocytes Percent Auto 20.9 % (25-40); Mean Corpuscular HGB Conc 34.4 % (30-36); Mean Corpuscular Hemoglobin 29.8 PG (26-34); Mean Corpuscular Volume 86.6 fL (80-100); Monocytes Absolute Auto 700 /uL (0-900); Neutrophils Absolute Auto 3600 /uL (1500-7000); Neutrophils Percent Auto 59.6 % (50-75); Platelet Count 276 X10^3/uL (150-400); Red Blood Cell Count 4.93 X10^6/uL (4.5-5.9); Red Cell Distribution Width 13.2 % (11.6-14.8)
[2021-07-19 20:13] LABS: Alanine Aminotransferase 24 IU/L (<50); Albumin 4.3 g/dL (3.5-5.0); Albumin Globulin Ratio 1.5 (1.0-2.8); Alkaline Phosphatase 61 U/L (38-126); Aspartate Aminotransferase 31 IU/L (17-59); BUN Creatinine Ratio 16.1 (6-22); Bilirubin Total 0.6 mg/dL (0.2-1.3); Blood Urea Nitrogen 18 mg/dL (9-20); Calcium 9.7 mg/dL (8.4-10.2); Carbon Dioxide 30 mmol/L (22-32); Chloride 107 mmol/L (98-107); Creatine Kinase 214 U/L (55-170); Estimated Glomerular Filt Rate > 60.0 mL/min (>60); Globulin 2.8 g/dL (1.7-4.1); Glucose 94 mg/dL (70-100); HEMOLYSIS < 15 (0-50); Lipase 77 U/L (23-300); Magnesium 2.2 mg/dL (1.6-2.3); Potassium 3.7 mmol/L (3.4-5.1); Sodium 142 mmol/L (137-145); Total Protein 7.1 g/dL (6.3-8.2)
[2021-07-19 20:25] LABS: Troponin I < 0.012 ng/mL (0.01-0.034)
[2021-07-19 20:28] LABS: CKMB % Relative Index 0.7 % (1.5-5.0); Creatine Kinase MB 1.56 ng/mL (<2.37)
--- NOTE | 2021-07-19 21:24 | ED.GENADULT ---
HPI - General Adult General Chief complaint: Shortness of Breath/Dyspnea Stated complaint: SOB Time Seen by Provider: 07/19/21 21:09 Source: patient Mode of arrival: Ambulatory History of Present Illness HPI narrative: Patient is a 35-year-old male who arrives the emergency department for several hours of shortness of breath we did describes as fluttering on the left side of his chest. He states that the symptoms started earlier today when he was working out. He stated that he was doing a fairly intense cardiovascular workout when he started to feel fluttering in became short of breath. He actually had to stop working out. Spent a period of time sitting down on the floor of the gym. It lasted for several hours. It has since greatly improved. He has never had anything like this in the past. Had no other symptoms at the time. He states that he felt like his heart was beating hard. Not necessarily beating fast. Had some shortness of breath the time. Does have a history of MS. Was recently started on a new medication but this was several weeks ago. Related Data Home Medications Medication Instructions Recorded Confirmed sildenafil 100 mg tablet 100 mg PO DAILY PRN 01/22/20 06/29/21 amantadine HCl 100 mg capsule 100 mg PO BID 08/24/20 06/29/21 cholecalciferol (vitamin D3) 125 6,000 unit PO DAILY 08/27/20 06/29/21 mcg (5,000 unit) tablet (Vitamin D3) diclofenac sodium 75 mg 75 mg PO BID PRN 08/27/20 06/29/21 tablet,delayed release fluticasone propionate 50 1 spray INTRANASAL DAILY 08/27/20 06/29/21 mcg/actuation nasal spray,suspension ocrelizumab 30 mg/mL intravenous 600 mg IV [id number] 08/27/20 06/29/21 solution (Ocrevus) vitamin B12 500 mcg-folic acid 400 1 tab PO DAILY 08/27/20 06/29/21 mcg tablet Allergies Allergy/AdvReac Type Severity Reaction Status Date / Time No Known Drug Allergies Allergy Verified 06/29/21 15:20 Review of Systems Constitutional Constitutional: Denies fever(s) and Denies headache(s) ENT Ears, Nose, Mouth, and Throat: Denies headache(s) Cardiovascular Cardiovascular: Reports as per HPI and Reports system reviewed and no additional complaints, except as documented Respiratory Respiratory: Reports as per HPI and Reports system reviewed and no additional complaints, except as documented Gastrointestinal Gastrointestinal: Reports system reviewed and no additional complaints, except as documented Integumentary/Breasts Skin/Breast: Reports system reviewed and no additional complaints, except as documented Neurologic Neurologic: Denies headache(s) Hematologic/Lymphatic On Anticoagulants: No Patient History Medical History Ankle pain Chronic midline low back pain without sciatica (04/20/16) Closed avulsion fracture of distal phalanx of finger Major depressive disorder with single episode, in full remission (06/27/17) Multiple sclerosis (04/20/16) Neurogenic bladder (04/20/16) Right ankle sprain Surgical History Hx of vasectomy (10/25/17) Family History Mother Diabetes mellitus Organic cardiac disease Father Diabetes mellitus Bipolar disorder Social History household members: spouse and children Smoking Status: Never smoker alcohol intake: never substance use type: does not use Smoking Status: Never smoker alcohol intake frequency: 0-2 drinks per day Substance Use Type: does not use Exam Initial Vital Signs Initial Vital Signs: Vital Signs Temperature 98.4 F 07/19/21 19:36 Pulse Rate 57 L 07/19/21 19:36 Respiratory Rate 22 07/19/21 19:36 Blood Pressure 149/80 H 07/19/21 19:36 Pulse Oximetry 100 07/19/21 19:36 HENMT Head: normal to inspection and normocephalic Resp Effort & Inspection: normal respiratory effort Auscultation: clear to auscultation bilaterally Cardio Rate: regular rate Rhythm: regular rhythm Skin General: no rashes or lesions noted Neuro General: patient alert, patient awake and moves all extremities Extrem General: normal to inspection Psych Appearance: grossly normal and well kempt Course Orders Ordered: ED Orders 07/19/21 19:45 Complete Blood Count AUTO DIFF Stat Comprehensive Metabolic Panel Stat Lipase Stat Magnesium Stat Troponin & CK Cardiac Panel Stat 07/19/21 19:54 XR chest 1V Stat EKG-12 Lead Stat Vital Signs Vital signs: Vital Signs - 8 hr 07/19/21 21:38 Pulse Rate 61 Respiratory Rate 14 Blood Pressure 139/78 Pulse Oximetry 99 Medical Decision Making Lab Data Lab results reviewed: Yes I reviewed the patient's lab results. Result diagrams: 07/19/21 19:45 07/19/21 19:45 Labs: Lab Results 07/19/21 07/19/21 Range/Units 19:45 19:45 WBC 6.0 (4.5-11.0) X10^3/uL RBC 4.93 (4.5-5.9) X10^6/uL Hgb 14.7 (13.5-17.5) g/dL Hct 42.7 (41-53) % MCV 86.6 (80-100) fL MCH 29.8 (26-34) PG MCHC 34.4 (30-36) % RDW 13.2 (11.6-14.8) % Plt Count 276 (150-400) X10^3/uL Neut % (Auto) 59.6 (50-75) % Lymph % (Auto) 20.9 L (25-40) % [place] % (Auto) 12.0 (3-14) % Eos % (Auto) 6.8 H (2-4) % Baso % (Auto) 0.7 (0-2) % Neut # (Auto) 3600 (2914-7452) /uL Lymph # (Auto) 1300 (5677-1970) /uL [place] # (Auto) 700 (0-900) /uL Eos # (Auto) 400 (0-450) /uL Baso # (Auto) 0 (0-100) /uL Sodium 142 (137-145) mmol/L Potassium 3.7 (3.4-5.1) mmol/L Chloride 107 (98-107) mmol/L Carbon Dioxide 30 (22-32) mmol/L BUN 18 (9-20) mg/dL Creatinine 1.12 (0.66-1.25) mg/dL Estimated GFR > 60.0 (>60) mL/min BUN/Creatinine Ratio 16.1 (6-22) Glucose 94 (70-100) mg/dL Calcium 9.7 (8.4-10.2) mg/dL Magnesium 2.2 (1.6-2.3) mg/dL Total Bilirubin 0.6 (0.2-1.3) mg/dL AST 31 (17-59) IU/L ALT 24 (<50) IU/L Alkaline Phosphatase 61 (38-126) U/L Total Creatine Kinase 214 H (55-170) U/L CK-MB (CK-2) 1.56 (<2.37) ng/mL CK-MB (CK-2) Rel Index 0.7 L (1.5-5.0) % Troponin I < 0.012 (0.01-0.034) ng/mL Total Protein 7.1 (6.3-8.2) g/dL Albumin 4.3 (3.5-5.0) g/dL Globulin 2.8 (1.7-4.1) g/dL Albumin/Globulin Ratio 1.5 (1.0-2.8) Lipase 77 (23-300) U/L Imaging Data Chest x-ray: Radiologist's Impression: [address] [address] XRay Report Signed Patient: Joe Wu MR#: [id number] : 1985 Acct:[id number] Age/Sex: 35 / M Date of Service: 07/19/21 Loc: ED Accession Number: [id number] ?? Procedure: XR chest 1V Ordering Provider: Juan Pablo Bower D.O. PROCEDURE:? XR CHEST 1V ? INDICATIONS:? chest pain ? TECHNIQUE:? One view of the chest was acquired.? ? COMPARISON:? None. ? FINDINGS:? ? Surgical changes and devices:? None.? ? Lungs and pleura:? Lungs are clear.? No pleural effusions or pneumothorax.? ? Mediastinum:? Mediastinal contours appear normal.? Heart size is normal.? ? Bones and chest wall:? No suspicious bony lesions.? Overlying soft tissues appear unremarkable.? ? IMPRESSION:? No acute cardiopulmonary abnormalities or focal airspace disease. ? Dictated by: Lee Smiley M.D. on 07/19/2021 at 20:27 ? ? Approved by: Lee Smiley M.D. on 07/19/2021 at 20:28? ECG Data Attestation: I personally reviewed and interpreted this ECG as follows: Prior ECG tracings: available for review Interpretation: Sinus bradycardia Ventricular rate of 54 Normal axis Normal QRS Normal QTC No ST T wave changes MDM Narrative Medical decision making narrative: Patient's symptoms seem to be improving. His chest x-ray is unremarkable. His EKG is unremarkable. Physical exam is unremarkable. Labs unremarkable. Afebrile. No indication for antibiotics. No low suspicion for ACS. Also some concern about potential arrhythmia during the time of the event. Did discuss the potential need for a Holter monitor given his presentation. Feel patient be safely discharged home with follow-up with his primary provider. Given return precautions. Expressed understanding and agreement. Discharge Plan Departure Patient Disposition: Home Clinical Impression: Shortness of Breath, Palpitations Instructions: DI for Shortness of Breath Activity Restrictions/Additional Instructions: I recommend that you continue taking all of your medications as directed. I do recommend that you talk with your primary doctor about the indications for a Holter monitor. Return to the emergency department for any new or worsening symptoms. Prescriptions: No Action sildenafil 100 mg tablet 100 mg PO DAILY PRN (Reason: Sexual Activity) 0RF Rx Instructions: administer 30 minutes to 4 hours before activity amantadine HCl 100 mg Capsule 100 mg PO BID 0RF fluticasone propionate 50 mcg/actuation [place],Suspension 1 spray INTRANASAL DAILY 0RF cholecalciferol (vitamin D3) [Vitamin D3] 125 mcg (5,000 unit) Tablet 6,000 unit PO DAILY 0RF vitamin Y69-ohulk acid 500-400 mcg Tablet 1 tab PO DAILY 0RF Ocrevus 30 mg/mL Solution 600 mg IV [id number] 0RF diclofenac sodium 75 mg tablet,delayed release (DR/EC) 75 mg PO BID PRN (Reason: Pain (Scale Score 1-3)) 0RF Referrals: Apolinar Medina MD [Primary Care Provider] -
[2021-07-19 21:38] VITALS: BP 139/78; PULSE 61; RESP 14; O2SAT 99
== END 2021-07-19 21:38 | disposition home or self-care (01) ==
PROVIDERS: Emergency Provider Emergency Medicine; PCP Family Medicine
DX: R06.02 Shortness of breath (principal); R00.2 Palpitations
CPT/HCPCS: 36415; 71045; 80053; 82550; 82553; 83690; 83735; 84484; 85025; 93005; 93010; 99284

== ENCOUNTER → 2021-07-29 13:02 | Outpatient (CLI) | payer OTHER, SELFPAY ==
--- NOTE | 2021-08-20 15:42 | PM.CARDMON.1 ---
Credit Card Control Clerk Report Referral & Results Date Patient Seen: 07/29/21 Requesting provider: Apolinar Medina Indication: Palpitations Duration of monitoring (days): 14 Diary information: There were 19 patient triggered events and 21 patient diary entries All of these patient events were variably associated with (within 45 seconds) sinus rhythm, PACs, PVCs including ventricular bigeminy and SVT Data: Minimum heart rate identified was 41 beats per minute at 06:03 on 08/01/2021 Maximum sinus heart rate was 156 beats per minute at 20:58 on 08/03/2021 Approximately 3.8% of identified beats were supraventricular ectopic in origin which would classify them as occasional Less than 1% of identified beats were ventricular ectopic in origin which would classify them as rare, and this included a 44.4 second run of ventricular bigeminy and a 14.2 second run of ventricular trigeminy There were 3 runs of SVT the fastest being 5 beats at a rate of 156 beats per minute the longest lasting 8 beats at a rate of 98 beats per minute which suggest more atrial tachycardia than true SVT No pauses and no atrial fibrillation or identified on this study Impression: 14 day pvc monitor demonstrating occasional PACs and rare PVCs as well as very rare very brief runs of SVT No clear correlation between patient reported symptoms and any one particular dysrhythmia was identified, although, based on frequency of PACs, this would be the most likely etiology but may well be multifactorial Clinical correlation suggested
== END ==
PROVIDERS: PCP Family Medicine; Referring Provider Family Medicine; Visit Provider Family Medicine
DX: R00.2 Palpitations (principal)
CPT/HCPCS: 93246; 93248

== ENCOUNTER → 2021-08-25 14:18 | Outpatient (CLI) | payer OTHER, SELFPAY ==
--- NOTE | 2021-08-25 14:19 | DI.ECHO.S_ITS ---
[facility] +---------+ [facility] +---------+ : : [address] : : : : [id number] : : : : Phone: [phone]+ Echocardiogram Report + + :Name: COLLIN SELLERS Study Date: 08/25/2021 Height: 77 in : :[facility] ReadingLocation: Weight: 280 lb : : Gender: Male BSA: 2.6 m2 : :: 1985 Age: 36 yrs BP: 138/81 mmHg: :Reason For Study: PALPITATIONS : :Ordering Physician: KANU, : :ADELAIDA Performed By: Josephine Harvey : :Referring: ADELAIDA BOBBY : + + Interpretation Summary The ejection fraction is estimated to be 60-65%. There is no significant valvular heart disease. Procedure: A two-dimensional transthoracic echocardiogram with color flow and Doppler was performed. The study quality was technically adequate. There is no prior echocardiogram noted for this patient. The patient was in sinus rhythm with heart rates between 62-79 bpm during the exam. Left Ventricle: The left ventricle is normal in size and wall thickness. The ejection fraction is estimated to be 60-65%. Left ventricular wall motion is normal. Right Ventricle: The right ventricle is borderline dilated. The right ventricular systolic function is normal. Atria: The left atrial size is normal. Right atrial size is normal. There is no Doppler evidence for an interatrial shunt. Mitral Valve: The mitral valve is normal in structure and function. There is trace mitral regurgitation. Aortic Valve: The aortic valve is trileaflet. The aortic valve opens well. There is no aortic valve stenosis. No aortic regurgitation is present. Tricuspid Valve: The tricuspid valve is normal in structure and function. There is trace tricuspid regurgitation. Pulmonary artery pressures cannot be estimated because of the lack of a measurable TR jet velocity but the IVC suggests a CVP of around 3 mmHg. Pulmonic Valve: The pulmonic valve leaflets are thin and pliable; valve motion is normal. There is no pulmonic valvular regurgitation. Great Vessels: The aortic root is normal size. The dimensions of the ascending aorta are normal. The IVC is of normal diameter and collapses greater than 50% with a sniff. This suggests a low right atrial pressure of 3 mm Hg. Pericardium/ Pleura There is no pericardial effusion. There is no pleural effusion. MMode/2D Measurements & Calculations LVIDd: 5.1 cm LVOT diam: 2.2 cm LVIDs: 3.3 cm Ao root diam: 3.3 cm FS: 36.2 % asc Aorta Diam: 3.0 cm IVSd: 0.90 cm Ao Arch Diam (Prox Trans): 2.6 cm LVPWd: 1.0 cm LV holder. diameter/BSA (cm/m^2): 2.0 LV sys. diameter/BSA (cm/m^2): 1.3 LA A2 area: 24.5 cm2 RA long axis: 5.5 cm LA A4 area: 20.2 cm2 RA area: 19.2 cm2 LA length (vol): 5.3 cm RA vol: 56.6 ml LA vol: 79.8 ml RA : 21.9 ml/m2 LA vol index: 30.9 ml/m2 IVC diam: 1.3 cm RVD1 (basal): 4.1 cm TAPSE: 2.4 cm Doppler Measurements & Calculations Ao V2 max: 166.8 cm/sec LVOT Max Delfin: 108.8 cm/sec Ao V2 mean: 111.5 cm/sec LV V1 max P.7 mmHg Ao max P.1 mmHg LV V1 VTI: 24.6 cm Ao mean P.8 mmHg SOLEDAD(I,D): 2.6 cm2 Ao V2 VTI: 35.3 cm SOLEDAD(V,D): 2.4 cm2 sev ratio: 0.69 SOLEDAD indexed to BSA (cm^2/m^2): 1.00 MV E max delfin: 78.9 cm/sec PA V2 max: 104.2 cm/sec MV A max delfin: 63.6 cm/sec PA V2 mean: 75.6 cm/sec MV E/A: 1.2 PA mean P.5 mmHg Med Peak E' Delfin: 12.5 cm/sec PA pr(Accel): 34.5 mmHg E/E' med: 6.3 Lat Peak E' Delfin: 12.6 cm/sec E/E' lat: 6.2 E/e' average: 6.3 MV dec time: 0.22 sec SV(LVOT): 91.1 ml Reading Physician:04:07 PM
== END ==
PROVIDERS: PCP Family Medicine; Referring Provider Family Medicine; Visit Provider Family Medicine
DX: R00.2 Palpitations (principal); R06.02 Shortness of breath
CPT/HCPCS: 93306

== ENCOUNTER → 2023-02-02 16:09 | Outpatient (CLI) | payer OTHER, SELFPAY ==
[2023-02-02 17:09] LABS: Appearance Urine UA CLEAR; Bilirubin Urine UA NEGATIVE (NEGATIVE); Color Urine UA YELLOW; Glucose Urine UA NEGATIVE (Negative); Ketones Urine UA NEGATIVE (NEGATIVE); Leukocyte Esterase Urine UA 1+ (NEGATIVE); Nitrite Urine UA NEGATIVE (Negative); Occult Blood Urine UA NEGATIVE (Negative); Protein Urine UA NEGATIVE (Negative); Specific Gravity Urine UA 1.015 (1.000-1.035)
[2023-02-02 17:32] LABS: Bacteria Urine Few (2-10); Culture Indicated Urine Specimen Cultured; RBC Urine 0-1/HPF (0-5/HPF); Squamous Epithelial Cell Urine 1-5 /HPF (0-5/HPF); WBC Urine 30-100/HPF (0-5/HPF)
== END ==
PROVIDERS: PCP Family Medicine; Referring Provider Physician Assistant; Visit Provider Physician Assistant
DX: R30.0 Dysuria (principal)
CPT/HCPCS: 81003; 81015; 87077; 87086; 87186